=== PATIENT | male | born 1985 | race Caucasian/White ===

== ENCOUNTER 2022-03-25 00:08 | Emergency (ER) | payer SELFPAY ==
[~2022-03-25] VITALS: Ht 172.7 cm; Wt 105.2 kg
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
--- NOTE | 2022-03-25 00:48 | NUR ---
PT SEEN BY DR. MOENT ANGELO
[2022-03-25] MEDS ORDERED: IBUPROFEN 400 MG TABLET PO ONE (01:00)
[2022-03-25] MEDS ORDERED: IBUPROFEN 400 MG TABLET ONE (01:07)
--- NOTE | 2022-03-25 01:37 | NUR ---
PT RETURNED TO ER BED [address]
--- NOTE | 2022-03-25 03:37 | NUR ---
pt ok to discharge per dr mcclellan. Patient discharged to home in stable condition. Written and verbal after care instructions given. Patient verbalizes understanding of instruction.Patient is awake and alert to self, day, and place. pt ambulatory with a steady gait
[2022-03-25 03:38] VITALS: BP 130/79
== END 2022-03-25 03:38 | disposition home or self-care (01) ==
LOC: ER 00:19
DX: S13.4XXA Sprain of ligaments of cervical spine, initial encounter (principal); S33.5XXA Sprain of ligaments of lumbar spine, initial encounter; S83.91XA Sprain of unspecified site of right knee, initial encounter; S09.90XA Unspecified injury of head, initial encounter; V89.2XXA Person injured in unspecified motor-vehicle accident, traffic, initial encounter; Y93.89 Activity, other specified; Y92.89 Other specified places as the place of occurrence of the external cause; Y99.8 Other external cause status
CPT/HCPCS: 70450-TC; 72110-TC; 72125-TC; 73564-TC